=== PATIENT | male | born 1945 | race Caucasian/White ===

== ENCOUNTER → 2020-03-07 | Outpatient (CLI) | payer MEDICARE, OTHER ==
--- NOTE | 2020-03-07 16:44 | CARD ---
MR#: [id number] Date of Study: 03/07/2020 Ordering Physician: BANDAR BERMUDEZ, Referring Physician: BANDAR BERMUDEZ, Tech: Amada Crystal RDCS APPROVED REPORT EXAM: Two-dimensional and M-mode echocardiogram with Doppler and color Doppler. Other Information Quality : Good INDICATION S/P Mitral Valve Repair/CABG 2D DIMENSIONS RVDd2.9 (2.9-3.5cm)Left Atrium(2D)3.3 (1.6-4.0cm) IVSd0.9 (0.7-1.1cm)Aortic Root(2D)3.2 (2.0-3.7cm) LVDd4.3 (3.9-5.9cm)PWd1.1 (0.7-1.1cm) LVDs3.2 (2.5-4.0cm)FS (%) 26.0 % SV43.6 mlLVEF(%)51.3 (>50%) Aortic Valve AoV Peak Blair.208.8cm/sAoV VTI43.9cm AO Peak GR.17.4mmHgAO Mean GR.10mmHg VANESSA (VTI)1.89cm2 Mitral Valve MV E Fxxbxppl19.4cm/sMV E Peak Gr.5mmHg MV DECEL [id number] A Kopqldyk00.5cm/s MV E Mean Gr.2mmHgE/A Ratio0.8 Tricuspid Valve TR P. [id number]/sRAP [id number] TR Peak Gr.88czGfCFVR90vdRv LEFT VENTRICLE The left ventricle is normal size. There is normal left ventricular wall thickness. Left ventricle sy stolic function is low normal. The Ejection Fraction is 50-55%. Septal motion consistent with post-op erative state. Transmitral Doppler flow pattern is Grade I-abnormal relaxation pattern. RIGHT VENTRICLE The right ventricle is normal size. The right ventricular systolic function is normal. ATRIA The left atrium size is normal. The right atrium size is normal. The interatrial septum is intact wit h no evidence for an atrial septal defect or patent foramen ovale as noted on 2-D or Doppler imaging. AORTIC VALVE The aortic valve is moderately thickened with milnimally decreased opening. Doppler and Color Flow re vealed no significant aortic regurgitation. Doppler and color-flow analysis revealed minimal aortic s tenosis. MITRAL VALVE The structure of the mitral valve appears normal in structure. There is a history of mitral valve rep air visualized. There is no evidence of mitral valve prolapse. Calculated mitral valve area is 2.0 cm 2 with maximum pressure gradient of 5 mmHg and mean pressure gradient of 2 mmHg. Doppler and Color-fl ow revealed trace mitral regurgitation. TRICUSPID VALVE The tricuspid valve is normal in structure and function. Doppler and Color Flow revealed trace to mil d tricuspid regurgitation. The PA pressure was estimated at 28 mmHg. There is no tricuspid valve sten osis. PULMONIC VALVE The pulmonary valve is normal in structure and function. Doppler and Color Flow revealed mild eccentr ic pulmonic valvular regurgitation. There is no pulmonic valvular stenosis. GREAT VESSELS The aortic root is normal in size. The ascending aorta is not well seen. The IVC is normal in size an d collapses >50% with inspiration. PERICARDIAL EFFUSION There is no evidence of significant pericardial effusion. Critical Notification Critical Value: No <Conclusion> The left ventricle is normal size. Left ventricle systolic function is low normal. The Ejection Fraction is 50-55%. Septal motion consistent with post-operative state. Doppler and Color Flow revealed no significant aortic regurgitation. Doppler and color-flow analysis revealed minimal aortic stenosis. The structure of the mitral valve appears normal in structure. There is a history of mitral valve rep air visualized. Calculated mitral valve area is 2.0 cm2 with maximum pressure gradient of 5 mmHg and mean pressure gr adient of 2 mmHg. Doppler and Color-flow revealed trace mitral regurgitation. Doppler and Color Flow revealed trace to mild tricuspid regurgitation. The PA pressure was estimated at 28 mmHg. Signed by : Bandar Bermudez MD Electronically Approved : 03/07/2020 16:44:05
== END ==
LOC: ECHO 13:39
PROVIDERS: ATTEND Internal Medicine Cardiovascular Disease
DX: I08.8 Other rheumatic multiple valve diseases (principal); Z98.890 Other specified postprocedural states
CPT/HCPCS: 93306